=== PATIENT | female | born 1980 | race Hispanic/Latino ===

== ENCOUNTER 2024-03-19 04:49 | Emergency (ER) | payer BC, SELFPAY ==
[2024-03-19] MEDS ORDERED: Ketorolac Tromethamine 30 MG (1 mL) VIAL ONE (04:50)
== END 2024-03-19 05:31 | disposition home or self-care (01) ==
LOC: CSHERS 04:49
DX: M75.51 Bursitis of right shoulder (principal); X50.1XXA Overexertion from prolonged static or awkward postures, initial encounter; Y93.89 Activity, other specified
CPT/HCPCS: 96372; 99283; J1885